=== PATIENT | male | born 1995 | race Caucasian/White ===

== ENCOUNTER 2021-06-01 09:47 | Emergency (ER) | payer SELFPAY ==
[2021-06-01] MEDS ORDERED: CEPHALEXIN500 MG PO (10:38)
== END 2021-06-01 11:03 | disposition home or self-care (01) ==
LOC: FER 09:47
DX: S80.812A Abrasion, left lower leg, initial encounter (principal); I10 Essential (primary) hypertension; Z88.4 Allergy status to anesthetic agent; W01.0XXA Fall on same level from slipping, tripping and stumbling without subsequent striking against object, initial encounter; Y92.830 Public park as the place of occurrence of the external cause
CPT/HCPCS: 99283